=== PATIENT | male | born 2000 | race Caucasian/White ===

== ENCOUNTER → 2019-09-19 14:01 | Outpatient (CLI) | payer OTHER, SELFPAY ==
[2019-09-19 14:40] LABS: Absolute Lymphocyte Count 2.04 X10^3/uL (0.83-4.51); Basophil# 0.05 X10^3/uL; Basophil% 0.7 % (0-1); Eosinophil# 0.09 X10^3/uL; Eosinophils% 1.3 % (0-5); Hematocrit 43.9 % (40-54); Lymphocyte # 2.04 X10^3/ul (4.0); Lymphocyte % 29.5 % (19-41); Mean Corp Hgb Conc 34.2 g/dL (32-36); Mean Corpuscular Hgb 27.8 pg (27.0-32.0); Mean Corpuscular Volume 81.4 fL (80-94); Mean Platelet Vol. 8.7 fl (6.2-12.0); Monocyte# 0.74 X10^3/uL; Monocyte% 10.7 % (0-10); NRBC Flagged by Analyzer 0 % (0-5); Neutrophil # 3.96 X10^3/uL (2.7-7.7); Neutrophil % 57.2 % (47-70); Platelet Count 225 K/mm3 (150-450); RBC Distribution Width CV 11.8 % (11.6-14.6); RBC Distribution Width SD 34.5 fl (35.1-43.9); Red Blood Count 5.39 M/mm3 (4.6-6.2); White Blood Count 6.9 K/mm3 (4.4-11.0)
[2019-09-19 15:08] LABS: AST(SGOT) 16 U/L (15-37); Alanine Aminotransfer ALT/SGPT 30 U/L (16-61)
== END ==
PROVIDERS: PCP Family Medicine; Referring Provider Podiatrist; Visit Provider Podiatrist
DX: B35.1 Tinea unguium (principal); B35.3 Tinea pedis
CPT/HCPCS: 36415; 84450; 84460; 85025

== ENCOUNTER 2021-06-11 13:10 | Outpatient (CLI) | payer OTHER, SELFPAY ==
[2021-06-11 15:44] LABS: HIV - WCH Non-Reactive (Nonreactive); Hepatitis B Surface Antibody Non-Reactive; Hepatitis B Surface Antigen Non-Reactive (Nonreactive); Hepatitis C Antibody Non-Reactive (Nonreactive); Vitamin B12 923 pg/mL (211-911); Vitamin D,25 Hydroxy 16.4 ng/mL
[2021-06-15 17:07] LABS: Chlamydia By Nucleic Acid AMP Negative (Negative)
[2021-06-15 18:03] LABS: Gonococcus By Nucleic Acid AMP Negative (Negative)
== END 2021-06-11 23:59 | disposition home or self-care (01) ==
LOC: LABSPEC 13:21
PROVIDERS: PCP Family Medicine; Visit Provider Nurse Practitioner Family
DX: N50.9 Disorder of male genital organs, unspecified (principal); R19.09 Other intra-abdominal and pelvic swelling, mass and lump; R53.83 Other fatigue; Z72.51 High risk heterosexual behavior
CPT/HCPCS: 82306; 82607; 86703; 86706; 86803; 87340; 87491; 87591

== ENCOUNTER 2021-06-17 15:33 | Outpatient (CLI) | payer OTHER, SELFPAY ==
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
== END 2021-06-17 23:59 | disposition home or self-care (01) ==
PROVIDERS: PCP Family Medicine; Referring Provider Nurse Practitioner Family; Visit Provider Nurse Practitioner Family
DX: N43.3 Hydrocele, unspecified (principal); N50.3 Cyst of epididymis
CPT/HCPCS: 76870; 93976

== ENCOUNTER 2025-02-14 08:13 | Emergency (ER) | payer SELFPAY ==
[2025-02-14 08:13] VITALS: BP 153/94; PULSE 84; RESP 14; TEMP 35.6; O2SAT 98; BMI 25.9
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
[2025-02-14 10:56] VITALS: BP 123/87; PULSE 87; RESP 18; TEMP 37; O2SAT 97
== END 2025-02-14 10:57 | disposition home or self-care (01) ==
PROVIDERS: Emergency Provider Emergency Medicine; Visit Provider Emergency Medicine
DX: S70.02XA Contusion of left hip, initial encounter (principal); S00.81XA Abrasion of other part of head, initial encounter; S70.212A Abrasion, left hip, initial encounter; V59.40XA Driver of pick-up truck or van injured in collision with unspecified motor vehicles in traffic accident, initial encounter; Y92.410 Unspecified street and highway as the place of occurrence of the external cause
CPT/HCPCS: 70450; 73502; 99282